=== PATIENT | male | born 1935 | race Caucasian/White ===

== ENCOUNTER → 2017-09-16 | Outpatient (CLI) | payer MEDICARE, OTHER ==
[~2017-09-16] MED LIST: ASPI81EC PO; BETA1 PO; Cialis5 MG; DOXA4 PO; ERGO50000 PO; EZET10-40 PO; EZET10-80 PO; FAMO20 PO; FIBE4P PO; FINA5 PO; FISH1000 PO; FLUT.05NI; HYDCHL25 PO; INS50/50I SC; INS70/30PN; INSLI100I SC; INSULANI SC; INSULANPEN; LEVSOD50 PO; LEVSOD75 PO; LISI20 PO; LOSHYD PO; Lomotil Tablet1 EACH PO; METO50ER PO; NIAC500 PO; Ocuvite Preser1 EACH PO; Omeprazole20 M1; SPIR25 PO; TAMS.4ER PO; Zofran Odt4 MG SL
== END | disposition home or self-care (01) ==
LOC: LAB SHORT 12:58 → LAB EV 12:58
DX: R30.0 Dysuria (principal)
CPT/HCPCS: 87077; 87086; 87186

== ENCOUNTER → 2017-10-27 | Outpatient (CLI) | payer MEDICARE, OTHER | END | disposition home or self-care (01) | LOC: LAB EV 16:12 → LAB SHORT 16:12 | DX: N39.0 Urinary tract infection, site not specified (principal) | CPT/HCPCS: 87077; 87086; 87186 ==

== ENCOUNTER 2017-12-13 00:40 | Emergency (ER) | payer MEDICARE, OTHER ==
[~2017-12-13] VITALS: Ht 177.8 cm; Wt 94.3 kg
[2017-12-13 02:28] LABS: Source, Urine Clean Catch
[2017-12-13 02:40] LABS: Bilirubin, Urine Neg (Neg); Blood, Urine 5+ (Neg); Glucose Qualitative, Urine Neg (Neg); Ketones, Urine Neg (Neg); Leukocyte Esterase, Urine 3+ (Neg); Nitrite, Urine Neg (Neg); Protein, Urine 3+ (Neg); Specific Gravity, Urine 1.015 (1.003-1.022); Urobilinogen, Urine NORM (Normal)
[2017-12-13 02:42] LABS: Appearance, Urine Hazy (Clear); Color, Urine Yellow (P-Yellow)
[2017-12-13 02:53] LABS: White Blood Cells, Urine 50-100 /hpf (0-5)
[2017-12-13 02:54] LABS: Bacteria Mod /hpf; Red Blood Cells, Urine 50-100 /hpf (0-2)
[2017-12-13 02:55] LABS: Squamous Epithelial Cells Few /hpf (Few)
[2017-12-13 02:56] LABS: Renal Epithelial Few /hpf (0-Rare)
[2017-12-13] MEDS ORDERED: Pyridium100 MG PO (03:25)
[2017-12-13] MEDS ORDERED: LEVO750 PO (03:25)
== END 2017-12-13 03:55 | disposition home or self-care (01) ==
LOC: ER 00:40
PROVIDERS: Emergency Medicine
DX: N39.0 Urinary tract infection, site not specified (principal); E11.9 Type 2 diabetes mellitus without complications; Z79.899 Other long term (current) drug therapy; Z79.82 Long term (current) use of aspirin; Z79.4 Long term (current) use of insulin
CPT/HCPCS: 81001; 87077; 87086; 87186; 99283

== ENCOUNTER 2020-02-01 23:50 | Emergency (ER) | payer MEDICARE, OTHER ==
[~2020-02-01] VITALS: Ht 180.3 cm; Wt 95.2 kg
[~2020-02-01 23:50] MED LIST changes: +LEVO750 PO; +Pyridium100 MG PO
[2020-02-02 00:13] LABS: BASOPHILS ABSOLUTE AUTO 0.01 K/mm3 (0.00-0.23); BASOPHILS PERCENT AUTO 0 % (0-2); EOSINOPHILS ABSOLUTE AUTO 0.15 K/mm3 (0.00-0.68); EOSINOPHILS PERCENT AUTO 4 % (0-6); Hematocrit 40.5 % (37.0-53.0); Hemoglobin 13.4 g/dL (13.5-17.5); IMMATURE GRAN ABSOLUTE AUTO 0.03 K/mm3 (0.00-0.10); IMMATURE GRAN PERCENT AUTO 1 % (0-1); LYMPHOCYTES ABSOLUTE AUTO 1.34 K/mm3 (0.84-5.20); LYMPHOCYTES PERCENT AUTO 33 % (21-46); MONOCYTES ABSOLUTE AUTO 0.33 K/mm3 (0.16-1.47); MONOCYTES PERCENT AUTO 8 % (4-13); Mean Corpuscular HGB 31.8 pg (26.0-34.0); Mean Corpuscular HGB Conc 33.1 g/dL (31.5-36.5); Mean Corpuscular Volume 96 fL (80-100); Mean Platelet Volume 10.6 fL (9.1-12.4); NEUTROPHILS ABSOLUTE AUTO 2.17 K/mm3 (1.96-9.15); NEUTROPHILS PERCENT AUTO 54 % (41-73); Platelet Count 95 K/mm3 (150-400); RDW Coefficient Variation 12.2 % (11.7-14.2); RDW Standard Deviation 42.5 fL (35.1-46.3); Red Blood Cell Count 4.21 M/mm3 (4.30-5.90); White Blood Cell Count 4.03 K/mm3 (4.00-11.30)
[2020-02-02] MEDS ORDERED: SEMGLEE100 UNIT/1 (00:16)
[2020-02-02] MEDS ORDERED: NEURONTIN300 MG PO (00:16)
[2020-02-02] MEDS ORDERED: ISOSORBIDE MONO30 MG PO (00:16)
[2020-02-02] MEDS ORDERED: EZET10 (00:16)
[2020-02-02] MEDS ORDERED: EUTHYROX75 MC1 (00:16)
[2020-02-02] MEDS ORDERED: NITR.4SL SL (00:16)
[2020-02-02] MEDS ORDERED: APIDRA SOL100 UNIT/1 SQ (00:17)
[2020-02-02 00:28] LABS: Albumin, Blood 3.3 g/dL (3.4-5.0); Albumin/Globulin Ratio 0.8 (0.8-1.8); Bilirubin, Total 0.4 mg/dL (0.1-1.0); Bun/Creatinine Ratio 15.3 (12.0-20.0); Calcium, Blood 9.1 mg/dL (8.5-10.1); Creatinine, Blood 1.7 mg/dL (0.60-1.20); Potassium, Blood 4.4 mmol/L (3.5-5.5); Total Protein, Blood 7.3 g/dL (6.4-8.2)
[2020-02-02 00:40] LABS: Source, Urine Catheter
[2020-02-02 00:53] LABS: Bilirubin, Urine Neg (Neg); Blood, Urine 4+ (Neg); Glucose Qualitative, Urine Neg (Neg); Ketones, Urine Neg (Neg); Leukocyte Esterase, Urine 2+ (Neg); Nitrite, Urine Neg (Neg); Protein, Urine 3+ (Neg); Urobilinogen, Urine NORM (Normal)
[2020-02-02 00:57] LABS: Appearance, Urine Hazy (Clear); Color, Urine Yellow (P-Yellow)
[2020-02-02 01:02] LABS: Bacteria Mod /hpf; Squamous Epithelial Cells Rare /hpf (Few); White Blood Cells, Urine TNTC /hpf (0-5)
== END 2020-02-02 02:40 | disposition home or self-care (01) ==
LOC: ER 23:50
PROVIDERS: Emergency Medicine
DX: R33.9 Retention of urine, unspecified (principal); I10 Essential (primary) hypertension; E11.9 Type 2 diabetes mellitus without complications; E78.5 Hyperlipidemia, unspecified; E03.9 Hypothyroidism, unspecified; Z79.4 Long term (current) use of insulin; Z79.82 Long term (current) use of aspirin; Z79.899 Other long term (current) drug therapy
CPT/HCPCS: 51702; 74176; 80053; 81001; 83690; 85025; 87077; 87086; 87186; 96374; 99284-25; J3010

== ENCOUNTER → 2020-06-21 | Outpatient (CLI) | payer MEDICARE, OTHER ==
[~2020-06-21] MED LIST changes: +APIDRA SOL100 UNIT/1 SQ; +EUTHYROX75 MC1; +EZET10; +ISOSORBIDE MONO30 MG PO; +NEURONTIN300 MG PO; +NITR.4SL SL; +SEMGLEE100 UNIT/1
== END ==
LOC: LAB EV 15:54 → LAB SHORT 15:54
DX: N39.0 Urinary tract infection, site not specified (principal)
CPT/HCPCS: 87086

== ENCOUNTER → 2020-07-12 | Outpatient (CLI) | payer MEDICARE, OTHER | END | disposition home or self-care (01) | LOC: LAB SHORT 10:38 → LAB EV 10:38 | DX: N39.0 Urinary tract infection, site not specified (principal) | CPT/HCPCS: 87077; 87086; 87186 ==

== ENCOUNTER → 2020-08-28 | Outpatient (CLI) | payer MEDICARE, OTHER | END | disposition home or self-care (01) | LOC: LAB SHORT 14:53 | DX: C44.42 Squamous cell carcinoma of skin of scalp and neck (principal) | CPT/HCPCS: 88305 ==

== ENCOUNTER → 2020-10-01 | Outpatient (CLI) | payer MEDICARE, OTHER | END | disposition home or self-care (01) | LOC: LAB 16:11 → LAB SHORT 16:11 | DX: N39.0 Urinary tract infection, site not specified (principal) | CPT/HCPCS: 87086 ==

== ENCOUNTER → 2020-12-31 | Outpatient (CLI) | payer MEDICARE, OTHER ==
[2020-12-31 15:07] LABS: BASOPHILS ABSOLUTE AUTO 0.03 K/mm3 (0.00-0.23); BASOPHILS PERCENT AUTO 1 % (0-2); EOSINOPHILS ABSOLUTE AUTO 0.14 K/mm3 (0.00-0.68); EOSINOPHILS PERCENT AUTO 3 % (0-6); Hematocrit 31.7 % (37.0-53.0); Hemoglobin 10.6 g/dL (13.5-17.5); IMMATURE GRAN ABSOLUTE AUTO 0.02 K/mm3 (0.00-0.10); IMMATURE GRAN PERCENT AUTO 0 % (0-1); LYMPHOCYTES ABSOLUTE AUTO 1.44 K/mm3 (0.84-5.20); LYMPHOCYTES PERCENT AUTO 31 % (21-46); MONOCYTES PERCENT AUTO 9 % (4-13); Mean Corpuscular HGB 31.9 pg (26.0-34.0); Mean Corpuscular HGB Conc 33.4 g/dL (31.5-36.5); Mean Corpuscular Volume 96 fL (80-100); Mean Platelet Volume 10.5 fL (9.1-12.4); NEUTROPHILS ABSOLUTE AUTO 2.55 K/mm3 (1.96-9.15); NEUTROPHILS PERCENT AUTO 56 % (41-73); Platelet Count 108 K/mm3 (150-400); RDW Coefficient Variation 12.5 % (11.7-14.2); Red Blood Cell Count 3.32 M/mm3 (4.30-5.90); White Blood Cell Count 4.58 K/mm3 (4.00-11.30)
[2020-12-31 15:17] LABS: Creatinine, Blood 1.69 mg/dL (0.60-1.20); Potassium, Blood 5.6 mmol/L (3.5-5.5)
== END ==
LOC: LAB SHORT 14:57 → LAB 14:57
PROVIDERS: Family Medicine
DX: N18.30 Chronic kidney disease, stage 3 unspecified (principal); R31.9 Hematuria, unspecified
CPT/HCPCS: 80048; 83880; 85025; 87077; 87086; 87186

== ENCOUNTER → 2021-03-11 | Outpatient (CLI) | payer MEDICARE, OTHER ==
[~2021-03-11] MED LIST changes: +AMLO5 PO; +ASPIR 8181 MG PO; +ATOR80 PO; +Cranberry400 MG PO; +Flomax0.4 MG PO; +Flonase 0.05% N16 GM; +GABA300 PO; +HUMALOG100 UNIT/1; +Isosorbide Mono30 MG PO; +METO50 PO; +NITR.4SL; +OMEP20ER PO; +Vitamin C100 M1; +Vitamin D1000 UNI1 PO
== END | disposition home or self-care (01) ==
LOC: LAB 10:48 → LAB SHORT 10:48
DX: N39.0 Urinary tract infection, site not specified (principal)
CPT/HCPCS: 87077; 87086; 87186

== ENCOUNTER 2021-03-12 17:01 | Inpatient (IN) | payer MEDICARE, OTHER ==
[~2021-03-12] VITALS: Ht 180.3 cm; Wt 102.0 kg
[~2021-03-12 17:01] MED LIST changes: -AMLO5 PO; -ASPIR 8181 MG PO; -ATOR80 PO; -Cranberry400 MG PO; -Flomax0.4 MG PO; -Flonase 0.05% N16 GM; -GABA300 PO; -HUMALOG100 UNIT/1; -Isosorbide Mono30 MG PO; -METO50 PO; -NITR.4SL; -OMEP20ER PO; -Vitamin C100 M1; -Vitamin D1000 UNI1 PO
[2021-03-12 18:32] LABS: BASOPHILS ABSOLUTE AUTO 0.03 K/mm3 (0.00-0.23); BASOPHILS PERCENT AUTO 0 % (0-2); EOSINOPHILS ABSOLUTE AUTO 0.17 K/mm3 (0.00-0.68); EOSINOPHILS PERCENT AUTO 2 % (0-6); Hematocrit 35.4 % (37.0-53.0); Hemoglobin 11.7 g/dL (13.5-17.5); IMMATURE GRAN ABSOLUTE AUTO 0.04 K/mm3 (0.00-0.10); IMMATURE GRAN PERCENT AUTO 1 % (0-1); LYMPHOCYTES ABSOLUTE AUTO 1.43 K/mm3 (0.84-5.20); LYMPHOCYTES PERCENT AUTO 17 % (21-46); MONOCYTES ABSOLUTE AUTO 0.62 K/mm3 (0.16-1.47); MONOCYTES PERCENT AUTO 8 % (4-13); Mean Corpuscular HGB Conc 33.1 g/dL (31.5-36.5); Mean Corpuscular Volume 97 fL (80-100); Mean Platelet Volume 10.5 fL (9.1-12.4); NEUTROPHILS ABSOLUTE AUTO 6.03 K/mm3 (1.96-9.15); NEUTROPHILS PERCENT AUTO 72 % (41-73); Platelet Count 109 K/mm3 (150-400); RDW Coefficient Variation 12.3 % (11.7-14.2); RDW Standard Deviation 43.9 fL (35.1-46.3); Red Blood Cell Count 3.66 M/mm3 (4.30-5.90); White Blood Cell Count 8.32 K/mm3 (4.00-11.30)
[2021-03-12 18:58] LABS: Albumin, Blood 3.5 g/dL (3.4-5.0); Albumin/Globulin Ratio 0.8 (0.8-1.8); Bilirubin, Total 0.4 mg/dL (0.1-1.0); Bun/Creatinine Ratio 27.7 (12.0-20.0); Calcium, Blood 9.1 mg/dL (8.5-10.1); Creatinine, Blood 2.31 mg/dL (0.60-1.20); Globulin, Blood 4.6 g/dL (2.2-4.0); Potassium, Blood 6.4 mmol/L (3.5-5.5); Total Protein, Blood 8.1 g/dL (6.4-8.2)
[2021-03-12 20:27] LABS: Albumin, Blood 3.6 g/dL (3.4-5.0); Albumin/Globulin Ratio 0.8 (0.8-1.8); Bilirubin, Total 0.3 mg/dL (0.1-1.0); Bun/Creatinine Ratio 26.8 (12.0-20.0); Calcium, Blood 9.2 mg/dL (8.5-10.1); Creatinine, Blood 2.31 mg/dL (0.60-1.20); Globulin, Blood 4.7 g/dL (2.2-4.0); Potassium, Blood 6.1 mmol/L (3.5-5.5); Total Protein, Blood 8.3 g/dL (6.4-8.2)
[2021-03-12 20:40] LABS: Source, Urine Clean Catch
[2021-03-12 20:43] LABS: Bilirubin, Urine Neg (Neg); Blood, Urine 5+ (Neg); Glucose Qualitative, Urine Neg (Neg); Ketones, Urine Neg (Neg); Leukocyte Esterase, Urine 3+ (Neg); Nitrite, Urine Neg (Neg); Protein, Urine 2+ (Neg); Specific Gravity, Urine 1.015 (1.003-1.022); Urobilinogen, Urine NORM (Normal)
[2021-03-12 20:54] LABS: Appearance, Urine Hazy (Clear); Color, Urine Pale Yellow (P-Yellow)
[2021-03-12 20:55] LABS: Red Blood Cells, Urine 25-50 /hpf (0-2); Squamous Epithelial Cells Few /hpf (Few)
[2021-03-12 20:56] LABS: Amorphous Light (0-Heavy); Bacteria Mod /hpf; Mucus Light (0-Heavy)
[2021-03-12 23:38] LABS: Bun/Creatinine Ratio 24.3 (12.0-20.0); Calcium, Blood 8.4 mg/dL (8.5-10.1); Creatinine, Blood 2.35 mg/dL (0.60-1.20); Potassium, Blood 5.1 mmol/L (3.5-5.5)
[2021-03-13 01:06] LABS: CPK Creatine Kinase 83 U/L (39-308)
[2021-03-13 03:30] LABS: Source, Urine Foley catheter
[2021-03-13 03:41] LABS: Bilirubin, Urine Neg (Neg); Blood, Urine 5+ (Neg); Glucose Qualitative, Urine 2+ (Neg); Ketones, Urine Neg (Neg); Leukocyte Esterase, Urine 2+ (Neg); Nitrite, Urine Neg (Neg); Protein, Urine Neg (Neg); Urobilinogen, Urine NORM (Normal)
--- NOTE | 2021-03-13 03:50 | NUR ---
ASSUMED CARE OF PATIENT AT APPROXIMATELY 0131 FROM ED DARLEEN CLARK. PATIENT ALERT AND ORIENTED TO SELF. PATIENT VERY FORGETFUL; UNABLE TO PROVIDE HISTORY; STATES CALL DAUGHTER IN [employer]; SHE HANDLES MEDICATIONS AND HELPS WITH HIS CARE. ADMISSION PARTIALLY COMPLETE; MED REC NOT DONE. PATIENT REPORTED CHEST PAIN AFTER ATTEMPTING TO USE THE URINAL ON SIDE OF BED; PATIENT REPORTED CHEST PAIN WAS A 5/10 IN HIS CHEST AND RIGHT ARM; NITRO GIVEN WITH RELIEF. PATIENT REPORTS EVERY TIME HE GETS UP HE HAS CHEST PAIN. PATIENT REPORTS "IF I JUST LAY HERE, IT SHOULD GO AWAY". CRACKLES; LASIX IV GIVEN. NSR ON TELE; OXYGEN SATURATION ABOVE 90% ON 5 LPM VIA NC TO START UP TO 10 THEN PLACED ON CPAP. PATIENT CURRENTLY TOLERATING CPAP. PIV X2 S/L. [employer]OR [employer] [place] RECIEVED ORDERS FOR MEREDITH; PATIENT RETAINING; ONLY ABLE TO URINATE 25-75 MLS EACH TIME EVERY 15-30 MINUTES. MEREDITH WAS PLACED BUT WAS DIFFICULT.
[2021-03-13 04:02] LABS: Appearance, Urine Hazy (Clear); Bacteria Rare /hpf; Color, Urine Yellow (P-Yellow); Squamous Epithelial Cells Not Seen /hpf (Few)
[2021-03-13 08:12] LABS: BASOPHILS ABSOLUTE AUTO 0.01 K/mm3 (0.00-0.23); BASOPHILS PERCENT AUTO 0 % (0-2); EOSINOPHILS PERCENT AUTO 0 % (0-6); Hematocrit 34.2 % (37.0-53.0); Hemoglobin 11.1 g/dL (13.5-17.5); IMMATURE GRAN ABSOLUTE AUTO 0.04 K/mm3 (0.00-0.10); IMMATURE GRAN PERCENT AUTO 1 % (0-1); LYMPHOCYTES ABSOLUTE AUTO 0.73 K/mm3 (0.84-5.20); LYMPHOCYTES PERCENT AUTO 10 % (21-46); MONOCYTES ABSOLUTE AUTO 0.62 K/mm3 (0.16-1.47); MONOCYTES PERCENT AUTO 8 % (4-13); Mean Corpuscular HGB 31.7 pg (26.0-34.0); Mean Corpuscular HGB Conc 32.5 g/dL (31.5-36.5); Mean Corpuscular Volume 98 fL (80-100); NEUTROPHILS ABSOLUTE AUTO 6.21 K/mm3 (1.96-9.15); NEUTROPHILS PERCENT AUTO 82 % (41-73); RDW Coefficient Variation 12.4 % (11.7-14.2); RDW Standard Deviation 44.2 fL (35.1-46.3); White Blood Cell Count 7.61 K/mm3 (4.00-11.30)
[2021-03-13 08:27] LABS: Mean Platelet Volume 10.8 fL (9.1-12.4); Platelet Count 111 K/mm3 (150-400)
[2021-03-13 08:29] LABS: Anti-Xa UFH, PHA Monitoring <0.10 IU/mL
[2021-03-13 08:38] LABS: International Normalized Ratio 1.03; Prothrombin Time Results 10.8 Sec (9.7-11.5)
[2021-03-13 08:52] LABS: Albumin, Blood 2.9 g/dL (3.4-5.0); Albumin/Globulin Ratio 0.7 (0.8-1.8); Bilirubin, Total 0.4 mg/dL (0.1-1.0); Bun/Creatinine Ratio 23.6 (12.0-20.0); Calcium, Blood 8.4 mg/dL (8.5-10.1); Creatinine, Blood 2.8 mg/dL (0.60-1.20); Globulin, Blood 4.1 g/dL (2.2-4.0)
[2021-03-13 08:53] LABS: Potassium, Blood 7.3 mmol/L (3.5-5.5)
[2021-03-13 09:14] LABS: Creatine Kinase MB 217.4 ng/mL (0.0-3.6); Creatine Kinase MB Index 12.5 (0.0-4.0)
[2021-03-13 10:01] LABS: Albumin, Blood 2.9 g/dL (3.4-5.0); Anion Gap 8 mmol/L (6-16); Blood Urea Nitrogen 64 mg/dL (8-24); CO2, Blood 21 mmol/L (21-32); Calcium, Blood 8.4 mg/dL (8.5-10.1); Chloride, Blood 110 mmol/L (98-108); Creatinine, Blood 2.78 mg/dL (0.60-1.20); Glomerular Filtration Rate 22 (60-); Glucose, Blood 422 mg/dL (70-99); Phosphorus, Blood 4.6 mg/dL (2.5-4.9); Sodium, Blood 139 mmol/L (136-145)
[2021-03-13 10:02] LABS: Potassium, Blood 6.9 mmol/L (3.5-5.5)
[2021-03-13] MEDS ORDERED: ASPIR 8181 MG PO (10:19)
[2021-03-13] MEDS ORDERED: ATOR80 PO (10:19)
[2021-03-13] MEDS ORDERED: LISI20 PO (10:26)
--- NOTE | 2021-03-13 13:24 | NUR ---
update: Pt states that he is having some nausea and 2/10 chest pain. Medicated with zofran and Nitro S/L. BP stable. HR 78, biox 91% on 12l High flow. Pt denies other needs. Will continue to monitor.
--- NOTE | 2021-03-13 13:26 | NUR ---
After S/L nitro Pt rates pain 1/10. BP stable. Will monitor.
[2021-03-13 13:51] LABS: Albumin, Blood 2.9 g/dL (3.4-5.0); Anion Gap 6 mmol/L (6-16); Blood Urea Nitrogen 67 mg/dL (8-24); CO2, Blood 24 mmol/L (21-32); Calcium, Blood 8.3 mg/dL (8.5-10.1); Chloride, Blood 110 mmol/L (98-108); Creatinine, Blood 2.91 mg/dL (0.60-1.20); Glomerular Filtration Rate 21 (60-); Glucose, Blood 373 mg/dL (70-99); Phosphorus, Blood 4.4 mg/dL (2.5-4.9); Potassium, Blood 5.4 mmol/L (3.5-5.5); Sodium, Blood 140 mmol/L (136-145)
[2021-03-13 17:16] LABS: Albumin, Blood 2.9 g/dL (3.4-5.0); Anion Gap 7 mmol/L (6-16); Blood Urea Nitrogen 65 mg/dL (8-24); Bun/Creatinine Ratio 21.3 (12.0-20.0); CO2, Blood 24 mmol/L (21-32); Calcium, Blood 8.6 mg/dL (8.5-10.1); Chloride, Blood 111 mmol/L (98-108); Creatinine, Blood 3.05 mg/dL (0.60-1.20); Glomerular Filtration Rate 19 (60-); Glucose, Blood 307 mg/dL (70-99); Phosphorus, Blood 4.4 mg/dL (2.5-4.9); Potassium, Blood 5.5 mmol/L (3.5-5.5); Sodium, Blood 142 mmol/L (136-145)
--- NOTE | 2021-03-13 17:39 | NUR ---
HEPRIN PLACED ON HOLD.
--- NOTE | 2021-03-13 17:48 | NUR ---
SHIFT SUMMARY; ASSUMED CARE AT 0700. A/A/OX4. BED REST DURING SHIFT, REPOSITIONS SELF NEEDED. MEREDITH CATH IN PLACE DRAINING CLEAR YELLOW URINE. NO SIGNS OF BLOOD IN URINE. ECHO COMPLETE TODAY, HEPARIN INFUSING DURING SHIFT. CARDIOLOGY CONSULT COMPLETE, NPO AFTER MIDNIGHT FOR ANGIO TOMORROW. Q4 HUMALOG TODAY FOR HYPERKALEMIA, NS INFUSING AT 50ML/HR. PLEASANT AND COOPERATIVE WITH CARE. WILL CONTINUE TO MONITOR AND TREAT UNTIL CHANGE OF SHIFT.
[2021-03-14 04:24] LABS: Hematocrit 32.4 % (37.0-53.0); Hemoglobin 10.4 g/dL (13.5-17.5); Mean Platelet Volume 10.8 fL (9.1-12.4); Platelet Count 112 K/mm3 (150-400)
[2021-03-14 04:42] LABS: Albumin, Blood 2.5 g/dL (3.4-5.0); Anion Gap 5 mmol/L (6-16); Blood Urea Nitrogen 60 mg/dL (8-24); Bun/Creatinine Ratio 20.3 (12.0-20.0); CO2, Blood 25 mmol/L (21-32); Calcium, Blood 8.2 mg/dL (8.5-10.1); Chloride, Blood 112 mmol/L (98-108); Creatinine, Blood 2.95 mg/dL (0.60-1.20); Glomerular Filtration Rate 20 (60-); Glucose, Blood 237 mg/dL (70-99); Phosphorus, Blood 3.9 mg/dL (2.5-4.9); Potassium, Blood 5.6 mmol/L (3.5-5.5); Sodium, Blood 142 mmol/L (136-145)
--- NOTE | 2021-03-14 05:24 | NUR ---
SHIFT SUMMARY PATIENT FOUND TO BE A PLEASANT MAN WHO IS A&OX4 WITH SOME GEN WEAKNESS. ENCOURAGIN SELF TURNS IN BED. NO CP THROUGHOUT SHIFT. NSR IN THE 70'S WITH PVC'S. ON 10L NC SATING LOW 90'S AND UNABLE TO WEAN DOWN FROM THIS. REFUSED DINNER DUE TO NAUSEA. ZOFRAN X2 GIVEN THROUGHOUT SHIFT WITH LITTLE RELIEF. DRY HEAVING EPISODES BUT NO VOMITING. NPO SINCE MIDNIGHT FOR ANGIO IN AM. MEREDITH PATENT DRAINING TO GRAVITY WITH GOOD OUTPUT. HEPARIN DRIP AND FLUIDS RUNNING PER ORDER. PG INSERTED INTO TERRENCE. NO ACUTE CONCERNS AT THIS TIME. WILL CONTINUE PLAN OF CARE UNTIL REPORT GIVEN TO CANELO MOREJON.
--- NOTE | 2021-03-14 09:46 | NUR ---
HEMATURIA OBSERVED IN URINE MEREDITH BAG AND IN DRAINAGE TUBE, DARK RED IN COLOR. NOTIFIED ROSELINE OLIVER DC'D PER DR. HYLTON. LEFT MESSAGE FOR DR. FLORIAN TO CALL BACK.
[2021-03-14] MEDS ORDERED: Vitamin D1000 UNI1 PO (12:59)
[2021-03-14] MEDS ORDERED: Vitamin C100 M1 (12:59)
[2021-03-14] MEDS ORDERED: AMLO5 PO (12:59)
[2021-03-14] MEDS ORDERED: Cranberry400 MG PO (13:00)
[2021-03-14] MEDS ORDERED: HUMALOG100 UNIT/1 (13:00)
[2021-03-14] MEDS ORDERED: METO50 PO (13:00)
[2021-03-14] MEDS ORDERED: INSULANI SC (13:00)
[2021-03-14] MEDS ORDERED: HYDCHL25 PO (13:00)
[2021-03-14] MEDS ORDERED: GABA300 PO (13:00)
[2021-03-14] MEDS ORDERED: Isosorbide Mono30 MG PO (13:00)
[2021-03-14] MEDS ORDERED: Flonase 0.05% N16 GM (13:00)
[2021-03-14] MEDS ORDERED: LEVSOD75 PO (13:00)
[2021-03-14] MEDS ORDERED: OMEP20ER PO (13:01)
[2021-03-14] MEDS ORDERED: NITR.4SL (13:01)
[2021-03-14] MEDS ORDERED: Flomax0.4 MG PO (13:01)
--- NOTE | 2021-03-14 14:38 | NUR ---
Per Dr. Antoine Fox discharge appropriate. Patient does not oppose discharge. Patient discharged home with Hospice. Hospice services coordinated through [facility]. Spoke with Liaison Chasity; [facility] will initiate hospice services at 3:30 today at patient's residence. Date of discharge: 03/13/2021 Date of admission: 03/13/2021 Provisional diagnosis at time of admission: Unstable angina Final Diagnosis at time of discharge: Unstable angina Location: Patient is discharged home to residence: [address] [place] [address] Transportation provided by: Deondre Robles Jr/private vehicle DME Ordered: None ordered; [facility] will assess needs and order as needed Follow-ups needed: [facility] will contact patient to schedule hospital discharge follow-up. Informed patient [facility] will contact patient to schedule an appointment if needed. Confirmed numbers: patient has a cell phone, but cannot locate. Patient: [phone] Deondre Bryan Jr: [phone] Provider/PCP: LILI Gould When: WITHIN 1 WEEK if needed Specialty: N/A When: N/A Comment: No barriers to discharge.
== END 2021-03-14 13:40 | disposition hospice, home (50) | DRG 280 ==
LOC: ER 17:01 → PCU 03-13 01:13
PROVIDERS: Family Medicine; Internal Medicine Cardiovascular Disease; Internal Medicine Nephrology; Physician Assistant; Student in an Organized Health Care Education/Training Program; ADMIT Internal Medicine
DX: I21.4 Non-ST elevation (NSTEMI) myocardial infarction (principal); J96.01 Acute respiratory failure with hypoxia; I50.21 Acute systolic (congestive) heart failure; N17.9 Acute kidney failure, unspecified; I13.0 Hypertensive heart and chronic kidney disease with heart failure and stage 1 through stage 4 chronic kidney disease, or unspecified chronic kidney disease; N13.6 Pyonephrosis; M48.54XA Collapsed vertebra, not elsewhere classified, thoracic region, initial encounter for fracture; E11.22 Type 2 diabetes mellitus with diabetic chronic kidney disease; R31.9 Hematuria, unspecified; E11.65 Type 2 diabetes mellitus with hyperglycemia; E87.5 Hyperkalemia; N18.2 Chronic kidney disease, stage 2 (mild); E78.5 Hyperlipidemia, unspecified; N40.1 Benign prostatic hyperplasia with lower urinary tract symptoms; E88.09 Other disorders of plasma-protein metabolism, not elsewhere classified; D63.1 Anemia in chronic kidney disease; E03.9 Hypothyroidism, unspecified; D69.6 Thrombocytopenia, unspecified; N13.9 Obstructive and reflux uropathy, unspecified; Z79.4 Long term (current) use of insulin; Z79.82 Long term (current) use of aspirin; Z79.899 Other long term (current) drug therapy; Z85.46 Personal history of malignant neoplasm of prostate; Z92.3 Personal history of irradiation; Z85.828 Personal history of other malignant neoplasm of skin; Z90.49 Acquired absence of other specified parts of digestive tract; Z98.890 Other specified postprocedural states
CPT/HCPCS: 36415; 51701; 51703; 51798; 71045; 74150; 74176; 80048; 80053; 80069; 81001; 82550; 82553; 82947; 83735; 83880; 84484; 85014; 85018; 85025; 85049; 85520; 85610; 87077; 87086; 87186; 93005; 93010; 94644; 94660; 96374; 96375; 99285-25; A9270; C1751; C8929; C9113; J0696; J1170; J1644; J1815; J1940; J2405; J3010; J7030; J7799; Q9957